=== PATIENT | male | born 1955 | race Caucasian/White ===

== ENCOUNTER 2018-10-22 19:08 | Emergency (ER) | payer BC ==
[2018-10-22] MEDS ORDERED: Sodium Chloride 0.9% 10 ML Syringe FLUSH PRN (19:32)
[2018-10-22] MEDS ORDERED: Sodium Chloride 0.9% 2.5 ML Syringe FLUSH PRN (19:32)
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
--- NOTE | 2018-10-22 20:05 | CR ---
Indication: Chest pain. Shortness of breath. Technique: A single AP portable view of the chest was obtained. Comparison: None Findings: The right hemidiaphragm is elevated. The heart is normal in size. The lungs are clear. No infiltrate, pleural effusion, or pneumothorax is identified. Impression: No acute cardiopulmonary process. Dictated by Anh Montana MD @ Oct 22 2018 8:03PM Signed by Dr. Anh Montana @ Oct 22 2018 8:03PM
[2018-10-22] MEDS ORDERED: Sodium Chloride 0.9% 1,000 ML IV ONE (20:08)
[2018-10-22 20:36] LABS: CARBON DIOXIDE,CO2 20.9 mmol/L (21.0-32.0); POTASSIUM,K 3.8 mmol/L (3.5-5.1)
[2018-10-22] MEDS ORDERED: Aspirin 81 MG Tab.Chew PO ONE (20:50)
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
[2018-10-22] MEDS ORDERED: Enoxaparin 100 MG/1 ML Syringe SUBCUT ONE (21:04)
[2018-10-22] MEDS ORDERED: Nitroglycerin 2% Oint 1 GM UD Packet TOP ONE (21:04)
[2018-10-22] MEDS ORDERED: Sodium Chloride 0.9% 1,000 ML IV SCH (21:15)
== END 2018-10-22 21:47 ==
LOC: MW.ED 19:08
DX: I21.3 ST elevation (STEMI) myocardial infarction of unspecified site (principal); R41.82 Altered mental status, unspecified; R93.0 Abnormal findings on diagnostic imaging of skull and head, not elsewhere classified; Z79.899 Other long term (current) drug therapy
CPT/HCPCS: 36415; 70450; 71045; 80053; 80305; 80320; 81003; 82962; 84443; 84484; 85025; 93005; 96360; 96361; 96372; 99285; A9270; J1650; J7040; G0480